=== PATIENT | male | born 1975 | race Caucasian/White ===

== ENCOUNTER 2019-09-12 11:33 | Day surgery (SDC) | payer OTHER ==
[2019-09-12] MEDS ORDERED: TAMS.4ER PO (16:19)
[2019-09-12] MEDS ORDERED: TADA10TA (16:19)
[2019-09-12] MEDS ORDERED: VRAYLAR3 MG PO (16:20)
[2019-09-12] MEDS ORDERED: VALA500 PO (16:21)
[2019-09-12] MEDS ORDERED: ZYRTEC10 M2 PO (16:21)
[2019-09-12] MEDS ORDERED: METPHE20 PO (16:22)
--- NOTE | 2019-09-12 16:28 | NUR ---
BLADDER SCAN: PT STATES HE DRANK AROUND 600 CC,STATES HE URINATED EARLY THIS MORNING AND HE "REALLY NEEDS TO PEE" SCANNED PTS BLADDER A TOTAL OF 3 TIMES AVERAGE 400 CC, PT URINATED CLEAR YELLOW URINE A TOTAL OF 300 CC AND THEN PT WAS SCANNED POST VOID AND HAD AVERAGE OF 3 SCANS A TOTAL OF 105CC RETAINING
== END 2019-09-12 14:05 | disposition home or self-care (01) ==
LOC: ATC 11:33
DX: N40.1 Benign prostatic hyperplasia with lower urinary tract symptoms (principal); R39.11 Hesitancy of micturition; J45.909 Unspecified asthma, uncomplicated; Z79.899 Other long term (current) drug therapy
CPT/HCPCS: 51798